=== PATIENT | female | born 1980 | race Caucasian/White ===

== ENCOUNTER 2022-03-05 11:26 | Emergency (ER) | payer SELFPAY ==
[2022-03-05 11:47] VITALS: BP 124/80; PULSE 84; RESP 18; TEMP 36.8; O2SAT 98; BMI 21.0
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
--- NOTE | 2022-03-05 12:41 | ED.NURSE ---
Urine sample obtained. Patient is changed into paper scrubs. Personal belongings to be brought home by friend. Camera visualization on for safety. DEC request placed and facesheet has been sent.
[2022-03-05 12:48] LABS: Basophils Absolute Auto 0.07 K/uL (0.00-0.30); Basophils Percent Auto 0.8 % (0.0-3.0); Eosinophils Absolute Auto 0.04 K/uL (0.00-0.50); Eosinophils Percent Auto 0.4 % (0.0-7.0); Hematocrit 43.2 % (33.0-51.0); Hemoglobin* 14.1 gm/dL (12.0-16.0); Lymphocytes Absolute Auto 2.25 K/uL (0.90-2.90); Lymphocytes Percent Auto 24.8 % (20-44); Mean Corpuscular HGB Conc 33 gm/dL (32-36); Mean Corpuscular Hemoglobin 29 pg (26-34); Mean Corpuscular Volume 89 fL (80-100); Monocytes Percent Auto 4.6 % (0.0-11.0); Neutrophils Percent Auto 69.4 % (42.0-72.0); Platelet Count* 187 K/uL (140-440); RDW Coefficient of Variation % 12.8 % (11.5-15.5); Red Blood Count 4.86 m/uL (4.00-5.20); White Blood Count* 9.08 K/uL (4.50-11.00)
[2022-03-05 12:50] LABS: Slide Review Reflex No
[2022-03-05] MEDS: ACETAMINOPHEN 500 MG TABLET 1000 MG PO (13:07)
--- NOTE | 2022-03-05 13:09 | ED.NURSE ---
Tylenol given for headache.
[2022-03-05 13:10] LABS: Chloride* 104 mmol/L (96-114)
[2022-03-05 13:11] LABS: Sodium* 138 mmol/L (135-149)
[2022-03-05 13:13] LABS: Carbon Dioxide* 28 mmol/L (20-32); Creatinine* 0.7 mg/dL (0.5-1.5); Est. Creatinine Clearance* 100.44; Estimated Glomerular Filt Rate 113 ml/min
[2022-03-05 13:14] LABS: Blood Urea Nitrogen* 8 mg/dL (5-24); Calcium* 8.8 mg/dL (8.4-10.6); Glucose* 101 mg/dL (60-115)
[2022-03-05 13:18] LABS: Acetaminophen* < 10.0 ug/mL (10.0-30.0); Salicylate* < 1.0 mg/dL (1.0-10)
[2022-03-05 13:19] LABS: Ethanol* < 0.01 % (0.01-0.03)
--- NOTE | 2022-03-05 13:21 | ED.NURSE ---
Telehealth DEC assessment in progress.
[2022-03-05 13:53] LABS: HCG Qualitative* Negative (Negative)
[2022-03-05 13:55] LABS: Amphetamine Screen Urine Negative (Negative); Barbiturate Screen Urine Negative (Negative); Benzodiazepines Screen Urine Negative (Negative); Cocaine Screen Urine Negative (Negative); Methadone Screen Urine Negative (Negative); Methamphetamines Screen Urine Negative (Negative); Opiate Screen Urine Negative (Negative); Oxycodone Screen Urine Negative (Negative); Phencyclidine Screen Urine Negative (Negative); Tricyclic Antidepressant Urine Negative (Negative)
[2022-03-05 13:57] LABS: SARS PCR* Negative SARS-CoV-2 (Negative)
[2022-03-05 13:59] LABS: Cannabinoid Screen Urine POSITIVE (Negative)
--- NOTE | 2022-03-05 14:56 | ED.NURSE ---
Patient moved to room 2 for safe room. Ate all of pizza for lunch and is aware of search for mental health placement.
--- NOTE | 2022-03-05 15:44 | ED.NURSE ---
Faxed medical reports to [facility], attn: Heather (phone [phone])
[2022-03-05] MEDS: NICOTINE 4 MG GUM BUCCAL (17:08)
--- NOTE | 2022-03-05 17:31 | ED.NURSE ---
[facility] is still reviewing patient. New superintendent pressureadmissions coordinator is Jun (phone) [phone]
--- NOTE | 2022-03-05 18:19 | ED.NURSE ---
[facility] has no availability to accept patient tonight.
--- NOTE | 2022-03-05 20:06 | ED.NURSE ---
Patient ate 50% of large chef saucier's salad for dinner.
[2022-03-05 21:45] VITALS: BP 131/73; PULSE 62; RESP 14; TEMP 36.2; O2SAT 98
[2022-03-05] MEDS: OLANZapine 5 MG TAB.RAPDIS 10 MG PO (21:51)
--- NOTE | 2022-03-05 22:17 | ED.NURSE ---
Patient accepted 10mg of Zyprexa to help her sleep. Is aware of acceptance to [facility] and is in agreement with transfer there.
[2022-03-06 06:58] VITALS: BP 125/70; PULSE 65; RESP 14; TEMP 36.2; O2SAT 98
[2022-03-06 07:15] VITALS: BP 134/70; PULSE 60; RESP 16; TEMP 36.1; O2SAT 98
--- NOTE | 2022-03-06 07:18 | ED.NURSE ---
Patient Transferred to [facility] in [place] via EMS. Updated receiving facility notified and also left message for patients friend, Raquel. Patient had a pillow, blanket, and sandels with her. Used the bathroom, brushed teeth and a to-go breakfast tray sent with. Patient left voluntary. Report given to EMS.
== END 2022-03-06 07:19 | disposition short-term general hospital (02) ==
PROVIDERS: Family Medicine; Emergency Provider Family Medicine
DX: R45.851 Suicidal ideations (principal); F31.9 Bipolar disorder, unspecified
CPT/HCPCS: 36415; 80048; 80143; 80179; 80306; 82077; 84703; 85025; 87635; 99283; 99284; 99285; A9270

== ENCOUNTER 2022-03-06 07:15 | Outpatient (CLI) | payer SELFPAY | END 2022-03-06 07:16 | disposition home or self-care (01) | LOC: AMB 03-19 16:16 | PROVIDERS: Visit Provider Family Medicine | DX: R45.851 Suicidal ideations (principal) | CPT/HCPCS: A0425; A0428 ==

== ENCOUNTER 2022-05-20 02:52 | Emergency (ER) | payer OTHER, SELFPAY ==
[2022-05-20 03:08] VITALS: BP 115/71; PULSE 90; RESP 18; TEMP 36.7; O2SAT 99; BMI 21.6
--- NOTE | 2022-05-20 03:27 | ED_ITS ---
HPI - General Adult General Time Seen by Provider: 03:28 Date Seen: 05/20/22 Chief complaint: Eye Problems Stated complaint: pressure in left eye,watery Time Seen by Provider: 05/20/22 03:06 Source: patient Mode of arrival: ambulatory Limitations: no limitations History of Present Illness HPI narrative: 41-year-old female who comes in today with pain around her left eye. This started 3 days ago. She does not have any blurry vision but she does note photophobia. She says the pain around her eyes sharp, worse in bright light, no nausea vomiting. She has a history of migraines but this feels different than her usual. She has no fever chills. No pain with external ocular movements. She has taken ibuprofen with minimal relief. Related Data Home Medications Medication Instructions Recorded Confirmed risperidone 1 mg tablet 1 mg PO DAILY 05/20/22 05/20/22 venlafaxine 75 mg capsule,extended 75 mg PO DAILY 05/20/22 05/20/22 release 24 hr Allergies Allergy/AdvReac Type Severity Reaction Status Date / Time bee pollen Allergy Intermediate elevated Verified 03/05/22 11:58 temp and swelling orange Allergy Mild Hives Verified 03/05/22 11:58 Review of Systems Status of ROS: Reports: 10 or more systems reviewed and unremarkable except as noted in History and below [facility] Medical History Anxiety Borderline personality disorder Surgical History (Updated 05/20/22 @ 03:45 by Davey Walker RN) No significant past surgical history Social History Smoking Status: Never smoker Second hand tobacco smoke exposure: No How often do you have a drink containing alcohol: never How often do you have six or more drinks on one occasion: Never AUDIT-C Alcohol total score: 0 Non-prescribed substance use: denies use Exam Narrative: Exam Narrative: General: Well-developed and well-nourished, no acute distress Head: Atraumatic and normocephalic Eyes: Pupils are equal reactive, extraocular motions intact, conjunctiva clear. Intra-ocular pressure on the left is 10mm. ENT: External nose and ears are normal, posterior pharynx without erythema or exudate Neck: No midline cervical tenderness, full spontaneous range of motion the neck, trachea midline, no adenopathy Heart: Regular rate and rhythm no murmurs or thrills Lungs: Clear to auscultation bilaterally without wheezes or crackles Abdomen: Soft, nontender, nondistended with active bowel sounds Musculoskeletal: No tenderness, deformity, or edema Neurologic: Awake, alert, and oriented x3, no gross focal neurologic deficits, cranial nerves intact as tested Psych: Mood and affect are appropriate Skin: No rashes Const: Vital Signs, click to edit/add: Vital Signs - 24 hr 05/20/22 03:08 05/20/22 03:30 Temperature 98.0 F 97.6 F Pulse Rate [Right Pulse Oximeter] 90 Respiratory Rate 18 Blood Pressure [Ri ght Upper Arm] 115/71 Pulse Oximetry 99 Oxygen Delivery Me thod Room Air Course Course Hospital Course: Patient seen examined, prior records reviewed. Patient presents with pain and pressure around the left eye. This been going on for 3 days. Concern for acute angle closure glaucoma, however pupils reactive, there is no eye redness, and intra-ocular pressure is 10. Some tenderness around the eye, no redness or swelling to suggest preseptal cellulitis, no pain with external ocular movements and no proptosis to suggest retrobulbar cellulitis or abscess. Symptoms are most consistent migraine-type headache. Toradol, Compazine, and Benadryl ordered. Reevaluation(s) Reevaluation #1: Patient feels better and is stable discharge Time: 04:38 Vital Signs Vital signs: Initial Vital Signs Temperature 98.0 F 05/20/22 03:08 Temperature Source Temporal Artery Scan 05/20/22 03:08 Pulse Rate 90 05/20/22 03:08 Respiratory Rate 18 05/20/22 03:08 Blood Pressure 115/71 05/20/22 03:08 Blood Pressure Mean 85 05/20/22 03:08 Blood Pressure Position Sitting 05/20/22 03:08 Pulse Oximetry 99 05/20/22 03:08 Oxygen Delivery Method 05/20/22 03:08 Vital Signs Temperature 98.0 F 05/20/22 03:08 Pulse Rate 90 05/20/22 03:08 Respiratory Rate 18 05/20/22 03:08 Blood Pressure 115/71 05/20/22 03:08 Pulse Oximetry 99 05/20/22 03:08 Oxygen Delivery Method 05/20/22 03:08 Temperature 97.6 F 05/20/22 03:30 Pulse Rate 90 05/20/22 03:08 Respiratory Rate 18 05/20/22 03:08 Blood Pressure 115/71 05/20/22 03:08 Pulse Oximetry 99 05/20/22 03:08 Oxygen Delivery Method 05/20/22 03:08 Medical Decision Making Medical Records Medical records reviewed: Yes I reviewed the patient's medical records Lab Data Lab results reviewed: Yes I reviewed the patient's lab results Discharge Plan Discharge Clinical Impression: Acute left eye pain, Headache Patient Disposition: Home, Self-Care Condition: Stable Instructions: Acute Headache (DC) Additional Instructions: Continue Tylenol and ibuprofen as needed for pain. Cool packs or warm packs for comfort. Activity Level: No Restrictions Discharge Diet: Regular Prescriptions: No Action risperidone 1 mg tablet 1 mg PO DAILY venlafaxine 75 mg capsule,extended release 24hr 75 mg PO DAILY Follow Up/Referrals: Provider,Not a Local [Primary Care Provider] - Stand Alone Forms: [employer] Info Instructions
[2022-05-20 03:30] VITALS: TEMP 36.4
[2022-05-20] MEDS: KETOROLAC 15 MG/ML inj IVP (03:30)
[2022-05-20] MEDS: 0.9 % SODIUM CHLORIDE 1000 ml 1,000 ML IV (03:30)
[2022-05-20] MEDS: diphenhydrAMINE 50 MG/ML inj 25 MG IVP (03:32)
[2022-05-20] MEDS: PROCHLORPERAZINE 5 MG/ML VIAL 10 MG IV (03:34)
[2022-05-20 03:44] VITALS: O2SAT 99
[2022-05-20 04:39] VITALS: TEMP 36.7
[2022-05-20 04:40] VITALS: BP 118/74; PULSE 79; RESP 18; TEMP 36.6; O2SAT 99
[2022-05-20 04:43] VITALS: BP 118/74; PULSE 79; RESP 18; TEMP 36.6
== END 2022-05-20 04:43 | disposition home or self-care (01) ==
PROVIDERS: Emergency Provider Family Medicine
DX: H57.12 Ocular pain, left eye (principal); R51.9 Headache, unspecified
CPT/HCPCS: 94761; 96361; 96374; 96375; 99283; 99284; J0780; J1200; J1885; J7030

== ENCOUNTER 2022-05-29 13:02 | Emergency (ER) | payer OTHER, SELFPAY ==
[2022-05-29 13:25] VITALS: BP 124/68; PULSE 84; RESP 16; TEMP 36.6; O2SAT 98; BMI 22.9
--- NOTE | 2022-05-29 13:58 | CRLHL7_ITS ---
For Patients: As a result of the Cures Act, medical imaging exams and procedure reports are released immediately into your electronic medical record. You may view this report before your referring provider. If you have questions, please contact your health care provider. INDICATION: Shortness of breath. TECHNIQUE: Chest 2 views. COMPARISON: None. FINDINGS: Lungs: Clear lungs. No consolidation. Pleura: No pleural effusion or pneumothorax. Heart and Mediastinum: The cardiomediastinal silhouette is normal. The vessels are unremarkable. Bones: Unremarkable. IMPRESSION: No acute cardiopulmonary disease. Dictated by Fransico Grossman MD @ 05/29/2022 3:08:55 PM (Electronically Signed)
--- NOTE | 2022-05-29 13:58 | CRLHL7_ITS ---
For Patients: As a result of the Cures Act, medical imaging exams and procedure reports are released immediately into your electronic medical record. You may view this report before your referring provider. If you have questions, please contact your health care provider. Indication: Fall. Pain. Technique: Three view supine x-rays of the sacrum and coccyx. Comparison: None available Findings: There is anterior angulation of the coccygeal segments relative to the sacrum, but this is within the limits of normal variation. No acute fracture is identified. Impression: No evidence for acute fracture. Dictated by Miah Morin MD @ 05/29/2022 3:00:18 PM (Electronically Signed)
--- NOTE | 2022-05-29 14:00 | CRLHL7_ITS ---
For Patients: As a result of the Century Cures Act, medical imaging exams and procedure reports are released immediately into your electronic medical record. You may view this report before your referring provider. If you have questions, please contact your health care provider. INDICATION: Fall. TECHNIQUE: CT head without contrast. Coronal and sagittal reformats were generated. COMPARISON: None. FINDINGS: CSF spaces: Within normal limits for age. Brain parenchyma and extra-axial spaces: The leos-white differentiation is normal. No sign of mass, hemorrhage, or midline shift. No extra-axial fluid collection. Skull base and calvarium: The visualized paranasal sinuses and mastoid air cells demonstrate no acute or significant findings. The visualized orbits are grossly unremarkable. No skull fractures. IMPRESSION: No acute intracranial abnormality. Please note that all CT scans at this facility use dose modulation, iterative reconstruction, and/or weight-based dosing when appropriate to reduce radiation dose to as low as reasonably achievable. Dictated by Fransico Grossman MD @ 05/29/2022 3:07:18 PM (Electronically Signed)
--- NOTE | 2022-05-29 14:28 | ED_ITS ---
HPI - General Adult General Chief complaint: Dizziness/Vertigo Stated complaint: Dizziness Time Seen by Provider: 05/29/22 13:38 Source: patient Mode of arrival: ambulatory Limitations: no limitations History of Present Illness HPI narrative: [age] year female coming in today several concerns. She was seen recently in the ER for pain behind her left eye and was treated for a migraine. She is concerned because although the pain did dhara some it is still present and constant. She also has been feeling chest pain for the last week and half, always at night when she lays down. She states that she has been having episodes of dizziness over the last week and a half as well-she describes it as feeling off balance, tingling of both upper extremities, and the room starts to spin. These episodes last for about 2 minutes at a time. She notices them more when she has to go from a sitting to a standing position but they can occur any time. She states that yesterday she was at home when she felt the sensation and she passed out. She believes she fell on her bottom as her tailbone is quite tender. She denies having increase headache the or any evidence of trauma to the head today. She denies changes in her vision or hearing. No confusion or weakness. No focal neurologic deficits. 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 She denies any fevers or chills. No nausea or vomiting. No ringing in her ears. No recent illness that she is aware of. Related Data Home Medications Medication Instructions Recorded Confirmed risperidone 1 mg tablet 2 mg PO DAILY 05/20/22 05/29/22 venlafaxine 75 mg capsule,extended 75 mg PO DAILY 05/20/22 05/29/22 release 24 hr Allergies Allergy/AdvReac Type Severity Reaction Status Date / Time bee pollen Allergy Intermediate elevated Verified 05/29/22 13:29 temp and swelling orange Allergy Mild Hives Verified 05/29/22 13:29 Review of Systems Status of ROS: Reports: 10 or more systems reviewed and unremarkable except as noted in History and below [facility] Medical History Anxiety Borderline personality disorder Surgical History No significant past surgical history Social History Smoking Status: Never smoker Second hand tobacco smoke exposure: No How often do you have a drink containing alcohol: never How often do you have six or more drinks on one occasion: Never AUDIT-C Alcohol total score: 0 Non-prescribed substance use: denies use Exam Narrative: Exam Narrative: Well-nourished well-developed patient in no acute distress. Alert and oriented. Answers questions appropriately. Mood and affect are appropriate. Thoughts are goal oriented and rational. No tangential or magical thinking noted. Patient speaks in full sentences without needing to catch their breath. Speech is not slurred or pressure. HEENT: Normocephalic atraumatic. Pupils are equally round reactive to light. Extraocular muscles are intact. Conjunctivae are moist without any icterus noted. Moist mucous membranes. Posterior pharynx is normal. Neck is soft without any lymphadenopathy or thyromegaly. No masses are appreciated. Patient does have a bottom lip piercing as well as a tongue piercing. Cardiovascular: Heart is regular rate and rhythm S1 and S2 are present without any murmurs. Lungs: Clear to auscultation bilaterally no wheezes rhonchi or rales are appreciated. Patient takes deep breaths without any discomfort. Abdomen: Soft and nontender nondistended with normal bowel sounds. No guarding or rebound. No masses or organomegaly appreciated. Extremities: Bilateral lower extremities are without edema. Normal DP and PT pulses. Skin: Well perfused without any obvious rashes. Strength is 5/5 of the upper and lower extremities. Reflexes are 2+ and symmetric at the knees. Romberg sign is negative. Cranial nerves 3-12 are normal. [id number] is normal. Ebwg-[id number] is normal. There is no nystagmus either horizontally or vertically. Gait is normal. Const: Vital Signs, click to edit/add: Vital Signs - 24 hr 05/29/22 13:25 05/29/22 15:07 Temperature 98 F Pulse Rate [Pulse Oximeter] 84 Pulse Rate [orthos tatic lying Pulse Oximeter] 66 Pulse Rate [orthos tatic sitting] 70 Pulse Rate [orthos tatic standing] 75 Respiratory Rate 16 Blood Pressure [Ri ght Upper Arm] 124/68 Blood Pressure [or thostatic lying] 97/68 Blood Pressure [or thostatic sitting] 105/73 Blood Pressure [or thostatic standing ] 114/82 Pulse Oximetry 98 Oxygen Delivery Me thod Room Air Course Course Hospital Course: Labs were done-unremarkable. Given her acute localized headache and symptoms we did proceed with a head CT which was unremarkable. EKG, read by me, shows normal sinus rhythm with a pulse of 72. She did not have any orthostatic hypotension. Vital Signs Vital signs: Initial Vital Signs Temperature 98 F 05/29/22 13:25 Temperature Source Temporal Artery Scan 05/29/22 13:25 Pulse Rate 84 05/29/22 13:25 Respiratory Rate 16 05/29/22 13:25 Blood Pressure 124/68 05/29/22 13:25 Blood Pressure Mean 86 05/29/22 13:25 Blood Pressure Position Sitting 05/29/22 13:25 Pulse Oximetry 98 05/29/22 13:25 Oxygen Delivery Method 05/29/22 13:25 Vital Signs Temperature 98 F 05/29/22 13:25 Pulse Rate 84 05/29/22 13:25 Respiratory Rate 16 05/29/22 13:25 Blood Pressure 124/68 05/29/22 13:25 Pulse Oximetry 98 05/29/22 13:25 Oxygen Delivery Method 05/29/22 13:25 Temperature 98 F 05/29/22 13:25 Pulse Rate 66 05/29/22 15:07 Respiratory Rate 16 05/29/22 13:25 Blood Pressure 97/68 05/29/22 15:07 Pulse Oximetry 98 05/29/22 13:25 Oxygen Delivery Method 05/29/22 13:25 Medical Decision Making MDM Narrative Medical decision making narrative: 41-year-old female with a dizziness, chest CT, extremity tingling, headache, workup entirely normal in the ER today. At this time we discussed the possibility of labyrinthitis, viral infection, stress. Patient states that the holidays are stressful for her because her ?family stresses me the fuck out. We discussed rest, moving slowly, staying well hydrated. Following up with primary care as needed. Patient was agreeable had no other questions. Medical Records Medical records reviewed: Yes I reviewed the patient's medical records Lab Data Lab results reviewed: Yes I reviewed the patient's lab results Labs: Lab Results 05/29/22 05/29/2205/29/22 Range/Units 14:30 14:49 14:49 WBC 8.74 (4.50-11.00) K/uL RBC 4.35 (4.00-5.20) m/uL Hgb 12.9 (12.0-16.0) gm/dL Hct 38.0 (33.0-51.0) % MCV 87 (80-100) fL MCH 30 (26-34) pg MCHC 34 (32-36) gm/dL RDW Coeff of Bravo 12.6 (11.5-15.5) % Plt Count 148 (140-440) K/uL Neut % (Auto) 64.1 (42.0-72.0) % Lymph % (Auto) 28.4 (20-44) % [place] % (Auto) 6.1 (0.0-11.0) % Eos % (Auto) 0.9 (0.0-7.0) % Baso % (Auto) 0.5 (0.0-3.0) % Neut # (Auto) 5.61 (1.7-7.0) K/uL Lymph # (Auto) 2.48 (0.90-2.90) K/uL [place] # (Auto) 0.50 (0.00-0.90) K/UL Eos # (Auto) 0.08 (0.00-0.50) K/uL Baso # (Auto) 0.04 (0.00-0.30) K/uL Abs Immat Gran (auto) 0.00 (0.00-0.30) K/uL Imm/Tot Granulo (auto) 0.0 % ESR 4 (2-20) mm/hr Sodium (135-149) mmol/L Potassium (3.6-5.1) mmol/L Chloride (96-114) mmol/L Carbon Dioxide (20-32) mmol/L BUN (5-24) mg/dL Creatinine (0.5-1.5) mg/dL Estimated Creat Clear Estimated GFR ml/min Glucose (60-115) mg/dL Lactate (0.5-1.9) mmol/L Calcium (8.4-10.6) mg/dL Total Bilirubin (0.1-1.5) mg/dL Direct Bilirubin (0.0-0.5) mg/dL AST (12-35) U/L ALT (4-35) U/L Alkaline Phosphatase (40-150) U/L C-Reactive Protein (0.5-1.0) mg/dL Total Protein (6.0-8.3) g/dL Albumin (3.3-5.0) g/dL Urine Color Yellow (Yellow) Urine Appearance Clear (Clear) Urine pH 5.5 (5.0-8.5) Ur Specific Ledbetter >= 1.030 (1.000-1.030) Urine Protein Negative (Negative) Urine Glucose (UA) Negative (Negative) Urine Ketones Trace A (Negative) Urine Blood Negative (Negative) Urine Nitrite Negative (Negative) Urine Bilirubin Negative (Negative) Urine Urobilinogen 0.2 (0.2-1.0) Ur Leukocyte Esterase Negative (Negative) Urine RBC 0-2 (0-2) Urine WBC 0-2 (0-5) Ur Squamous Epith Cells Few (None-Few) Urine Bacteria Few A (None) Urine Mucus Few A (None) 05/29/22 05/29/22 05/29/22 Range/Units 14:49 14:49 14:49 WBC (4.50-11.00) K/uL RBC (4.00-5.20) m/uL Hgb (12.0-16.0) gm/dL Hct (33.0-51.0) % MCV (80-100) fL MCH (26-34) pg MCHC (32-36) gm/dL RDW Coeff of Bravo (11.5-15.5) % Plt Count (140-440) K/uL Neut % (Auto) (42.0-72.0) % Lymph % (Auto) (20-44) % [place] % (Auto) (0.0-11.0) % Eos % (Auto) (0.0-7.0) % Baso % (Auto) (0.0-3.0) % Neut # (Auto) (1.7-7.0) K/uL Lymph # (Auto) (0.90-2.90) K/uL [place] # (Auto) (0.00-0.90) K/UL Eos # (Auto) (0.00-0.50) K/uL Baso # (Auto) (0.00-0.30) K/uL Abs Immat Gran (auto) (0.00-0.30) K/uL Imm/Tot Granulo (auto) % ESR (2-20) mm/hr Sodium 137 (135-149) mmol/L Potassium 3.9 (3.6-5.1) mmol/L Chloride 105 (96-114) mmol/L Carbon Dioxide 28 (20-32) mmol/L BUN 14 (5-24) mg/dL Creatinine 0.7 (0.5-1.5) mg/dL Estimated Creat Clear 97.09 Estimated GFR 113 ml/min Glucose 83 (60-115) mg/dL Lactate 0.4 L (0.5-1.9) mmol/L Calcium 8.7 (8.4-10.6) mg/dL Total Bilirubin 0.4 Cancelled (0.1-1.5) mg/dL Direct Bilirubin 0.2 Cancelled (0.0-0.5) mg/dL AST 36 H Cancelled (12-35) U/L ALT 25 Cancelled (4-35) U/L Alkaline Phosphatase 59 Cancelled (40-150) U/L C-Reactive Protein < 0.5 L (0.5-1.0) mg/dL Total Protein 6.6 Cancelled (6.0-8.3) g/dL Albumin 4.2 Cancelled (3.3-5.0) g/dL Urine Color (Yellow) Urine Appearance (Clear) Urine pH (5.0-8.5) Ur Specific Ledbetter (1.000-1.030) Urine Protein (Negative) Urine Glucose (UA) (Negative) Urine Ketones (Negative) Urine Blood (Negative) Urine Nitrite (Negative) Urine Bilirubin (Negative) Urine Urobilinogen (0.2-1.0) Ur Leukocyte Esterase (Negative) Urine RBC (0-2) Urine WBC (0-5) Ur Squamous Epith Cells (None-Few) Urine Bacteria (None) Urine Mucus (None) Imaging Data CT scan - head: Attestation: I have reviewed the pertinent imaging results. Radiologist's impression: CT head without contrast. Coronal and sagittal reformats were generated. COMPARISON: None. FINDINGS: CSF spaces: Within normal limits for age. Brain parenchyma and extra-axial spaces: The leos-white differentiation is normal. No sign of mass, hemorrhage, or midline shift. No extra-axial fluid collection. Skull base and calvarium: The visualized paranasal sinuses and mastoid air cells demonstrate no acute or significant findings. The visualized orbits are grossly unremarkable. No skull fractures. IMPRESSION: No acute intracranial abnormality. Chest x-ray: Attestation: I have reviewed the pertinent imaging results. Radiologist's impression: Chest 2 views. COMPARISON: None. FINDINGS: Lungs: Clear lungs. No consolidation. Pleura: No pleural effusion or pneumothorax. Heart and Mediastinum: The cardiomediastinal silhouette is normal. The vessels are unremarkable. Bones: Unremarkable. IMPRESSION: No acute cardiopulmonary disease. ECG Data Attestation: I personally reviewed and interpreted this ECG as follows: (Normal sinus rhythm, pulse 72) Discharge Plan Discharge Clinical Impression: Dizziness, Headache Patient Disposition: Home, Self-Care Condition: Stable Additional Instructions: Your workup today including an EKG, chest x-ray, head CT and lab work were entirely normal. Recommend you rest as much as you can, and stay very well hydrated. Follow-up with your primary care provider as needed. Return to the ER if your symptoms worsen. Prescriptions: No Action risperidone 1 mg tablet 2 mg PO DAILY venlafaxine 75 mg capsule,extended release 24hr 75 mg PO DAILY Follow Up/Referrals: Provider,Not a Local [Primary Care Provider] - Stand Alone Forms: [employer] Instructions
[2022-05-29 14:46] LABS: Appearance Urine Clear (Clear); Bilirubin Urine Negative (Negative); Blood Urine Negative (Negative); Color Urine Yellow (Yellow); Glucose Urine Negative (Negative); Ketones Urine Trace (Negative); Leukocyte Esterase Urine Negative (Negative); Nitrite Urine Negative (Negative); Protein Urine Negative (Negative); Specific Gravity Urine >= 1.030 (1.000-1.030); Urobilinogen Urine 0.2 (0.2-1.0); pH Urine 5.5 (5.0-8.5)
[2022-05-29 14:53] LABS: Lactate* 0.4 mmol/L (0.5-1.9)
[2022-05-29 15:04] LABS: Basophils Absolute Auto 0.04 K/uL (0.00-0.30); Basophils Percent Auto 0.5 % (0.0-3.0); Eosinophils Absolute Auto 0.08 K/uL (0.00-0.50); Eosinophils Percent Auto 0.9 % (0.0-7.0); Hemoglobin* 12.9 gm/dL (12.0-16.0); Lymphocytes Absolute Auto 2.48 K/uL (0.90-2.90); Lymphocytes Percent Auto 28.4 % (20-44); Mean Corpuscular HGB Conc 34 gm/dL (32-36); Mean Corpuscular Hemoglobin 30 pg (26-34); Mean Corpuscular Volume 87 fL (80-100); Monocytes Percent Auto 6.1 % (0.0-11.0); Neutrophils Absolute Auto 5.61 K/uL (1.7-7.0); Neutrophils Percent Auto 64.1 % (42.0-72.0); Platelet Count* 148 K/uL (140-440); RDW Coefficient of Variation % 12.6 % (11.5-15.5); Red Blood Count 4.35 m/uL (4.00-5.20); White Blood Count* 8.74 K/uL (4.50-11.00)
[2022-05-29 15:07] VITALS: BP 105/73; BP 114/82; BP 97/68; PULSE 66; PULSE 70; PULSE 75
[2022-05-29 15:07] LABS: Bacteria Urine Few; RBC Urine 0-2 (0-2); Squamous Epithelial Cell Urine Few (None-Few); WBC Urine 0-2 (0-5)
[2022-05-29 15:09] LABS: Mucus Urine Few
[2022-05-29 15:09] LABS: Slide Review Reflex No
[2022-05-29 16:12] LABS: Erythrocyte SedimentationRate* 4 mm/hr (2-20)
[2022-05-29 16:35] LABS: Chloride* 105 mmol/L (96-114)
[2022-05-29 16:36] LABS: Albumin* 4.2 g/dL (3.3-5.0); Sodium* 137 mmol/L (135-149)
[2022-05-29 16:37] LABS: Potassium* 3.9 mmol/L (3.6-5.1)
[2022-05-29 16:39] LABS: Alanine Aminotransferase* 25 U/L (4-35); Alkaline Phosphatase* 59 U/L (40-150); Aspartate Amino Transferase* 36 U/L (12-35); Bilirubin Direct* 0.2 mg/dL (0.0-0.5); Bilirubin Total* 0.4 mg/dL (0.1-1.5); Blood Urea Nitrogen* 14 mg/dL (5-24); Carbon Dioxide* 28 mmol/L (20-32); Creatinine* 0.7 mg/dL (0.5-1.5); Est. Creatinine Clearance* 97.09; Estimated Glomerular Filt Rate 113 ml/min; Glucose* 83 mg/dL (60-115); Total Protein* 6.6 g/dL (6.0-8.3)
[2022-05-29 16:40] LABS: Calcium* 8.7 mg/dL (8.4-10.6)
[2022-05-29 16:43] LABS: C Reactive Protein* < 0.5 mg/dL (0.5-1.0)
[2022-05-29 17:42] VITALS: BP 99/64; PULSE 71; RESP 14; O2SAT 94
[2022-05-29 18:46] LABS: Troponin I* < 0.01 ng/mL (0.01-0.04)
== END 2022-05-29 17:44 | disposition home or self-care (01) ==
PROVIDERS: Emergency Provider Family Medicine
DX: R51.9 Headache, unspecified (principal)
CPT/HCPCS: 36415; 70450; 71046; 72220; 80048; 80076; 81001; 83605; 84484; 85025; 85651; 86140; 87086; 93005; 99284; 99285